=== PATIENT | female | born 1995 | race Caucasian/White ===

== ENCOUNTER 2019-08-20 14:23 | Emergency (ER) | payer SELFPAY ==
[2019-08-20] MEDS ORDERED: Metoclopramide HCl 10 MG/2 ML VIAL ONE (14:54)
[2019-08-20] MEDS ORDERED: Ketorolac Tromethamine 30 MG/ML VIAL ONE (14:54)
[2019-08-20] MEDS ORDERED: diphenhydrAMINE 50 MG/ML VIAL ONE (14:54)
[2019-08-20] MEDS ORDERED: Albuterol Sulfate 2.5 mg/3 ml Neb ONE ×2 (15:10→15:20)
[2019-08-20] MEDS ORDERED: Albuterol Sulfate 2.5 mg/0.5 ml Neb ONE ×2 (15:10→15:20)
--- NOTE | 2019-08-20 15:10 | RAD ---
XR Chest 1 View Portable History: Seizure Comparison: None. Findings: Lungs are clear. No pneumothorax or effusion. Cardiac silhouette and mediastinal contours a re within normal limits. No acute osseous or malalignment. Impression: No acute intrathoracic abnormality.
[2019-08-20 15:14] LABS: #Eosinphils 1.2 thou/uL (0.0-0.7); #Monocytes 0.4 thou/uL (0.11-0.59); #Neutrophils 5.1 thou/uL (1.40-6.50); %Basophils 0.3 % (0.0-1.0); %Lymphocytes 23.1 % (21.0-51.0); %Monocytes 4.5 % (0.0-10.0); %Neutrophils 58.1 % (42.0-75.0); Hemoglobin 13.1 g/dL (12.0-16.0); Mean Corpuscular HGB CONC 33.5 g/dL (32.0-36.0); Mean Corpuscular Hemoglobin 26.1 pg (27.0-31.0); Mean Platelet Volume 9.8 fL (7.4-10.4); Platelet Count 185 thou/uL (130-400); RBC Distribution Width 13.6 % (11.5-14.5); White Blood Cell (WBC) Count 8.8 thou/uL (4.8-10.8)
[2019-08-20 15:20] LABS: BHCG - Serum Negative (NEGATIVE); Pregs Control Background? CLEAR/WHITE (CLR/WHITE); Pregs Control Bar Appear? YES (CONTROL BAR)
--- NOTE | 2019-08-20 15:32 | CT ---
CT BRAIN NONCONTRAST: HISTORY: A 24-year-old female with seizure, headache, dizziness and dysarthria. 08/20/2019 FINDINGS: The ventricles are normal in size and configuration. There is no midline shift or any other mass eff ect. There is no evidence of acute intracranial hemorrhage, large cortical infarct, or extraaxial fl uid collection. The thomas matter /white matter differentiation is maintained. The calvarium is intac t. The tympanomastoid cavities, and the upper portions of the paranasal sinuses included in these im ages, are grossly clear. IMPRESSION: Normal. jn [] POS: TPC
[2019-08-20 15:35] LABS: ALT (SGPT) 11 U/L (8-55); AST (SGOT) 15 U/L (5-34); Albumin 4.7 g/dL (3.5-5.0); Alkaline Phosphatase 73 U/L (40-110); Anion Gap 12 mmol/L (10-20); BUN (Urea Nitrogen) 8 mg/dL (7.0-18.7); Bilirubin, Total 0.3 mg/dL (0.2-1.2); CK (CPK) 33 U/L (29-168); Calc. Creatinine Clearance 0 mL/min (70-130); Calcium 9.1 mg/dL (7.8-10.44); Carbon Dioxide 25 mmol/L (22-29); Chloride 104 mmol/L (98-107); Estimated GFR-MDRD Greater than 90; Globulin 2.7 g/dL (2.4-3.5); Glucose 103 mg/dL (70-105); Potassium 3.2 mmol/L (3.5-5.1); Protein, Total 7.4 g/dL (6.0-8.3); Sodium 138 mmol/L (136-145)
[2019-08-20 15:46] LABS: Thyroid Stimulating Hormone 1.2584 uIU/mL (0.35-4.94)
[2019-08-20] MEDS ORDERED: Potassium Chloride 20 MEQ TAB ONE (16:16)
== END 2019-08-20 16:37 | disposition home or self-care (01) ==
LOC: ERS 14:23
DX: F43.9 Reaction to severe stress, unspecified (principal); R53.83 Other fatigue; R51 Headache
CPT/HCPCS: 70450; 71045; 80053; 82550; 84146; 84443; 84703; 85025; 93005; 94640; 96365; 96375; J1200; J1885; J2765; J7611

== ENCOUNTER 2020-01-26 10:15 | Emergency (ER) | payer SELFPAY ==
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
[2020-01-26] MEDS ORDERED: Ondansetron ODT 4 MG TAB ONE (11:15)
[2020-01-26] MEDS ORDERED: Morphine 4 MG/ML VIAL ONE (11:15)
== END 2020-01-26 12:00 | disposition home or self-care (01) ==
LOC: ERS 10:15
DX: S83.91XA Sprain of unspecified site of right knee, initial encounter (principal); J45.909 Unspecified asthma, uncomplicated; F41.9 Anxiety disorder, unspecified; F17.220 Nicotine dependence, chewing tobacco, uncomplicated; V80.010A Animal-rider injured by fall from or being thrown from horse in noncollision accident, initial encounter
CPT/HCPCS: 96372; J2270; Q0162

== ENCOUNTER 2020-08-24 21:51 | Observation (INO) | payer SELFPAY ==
[2020-08-24] MEDS ORDERED: Aspirin Chewable 81 MG TAB ONE (22:20)
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
[2020-08-25] MEDS ORDERED: Albuterol Sulfate 2.5 mg/3 ml Neb EZPAP SCH (01:15)
[2020-08-25] MEDS ORDERED: Albuterol Sulfate 2.5 mg/3 ml Neb EZPAP PRN (01:33)
[2020-08-25] MEDS ORDERED: Aspirin Chewable 81 MG TAB ONE (07:54)
[2020-08-25] MEDS ORDERED: Acetaminophen 325 MG TAB ONE (07:54)
[2020-08-25] MEDS: Acetaminophen 325 MG TAB PO PRN ×2 (07:59→20:33)
[2020-08-25] MEDS: Aspirin 81 mg Enteric Coated Tablet PO SCH (07:59)
[2020-08-25 08:16] LABS: Cardiac Risk 3.1 (Less than 4.5)
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
[2020-08-25] MEDS ORDERED: Lorazepam 2 MG/ML VIAL SLOW IVP SCH (11:00)
[2020-08-25 11:03] LABS: SARS-CoV-2 MS2 Positive; SARS-CoV-2 N Gene Negative; SARS-CoV-2 S Gene Negative; SARS-CoV-2 by NAA Not Detected (NotDetected); SARS-CoV-2 orf1ab Negative
[2020-08-25] MEDS ORDERED: Prochlorperazine 10 MG/2 ML VIAL IVP SCH (11:15)
[2020-08-25] MEDS ORDERED: diphenhydrAMINE 50 MG/ML VIAL IVP SCH ×2 (11:15→21:30)
[2020-08-25] MEDS ORDERED: Ketorolac Tromethamine 30 MG/ML VIAL IVP SCH ×2 (11:15→21:30)
[2020-08-25] MEDS ORDERED: Ketorolac Tromethamine 30 MG/ML VIAL ONE (11:18)
[2020-08-25] MEDS ORDERED: Lorazepam 2 MG/ML VIAL ONE (11:18)
[2020-08-25] MEDS ORDERED: diphenhydrAMINE 50 MG/ML VIAL ONE (11:18)
--- NOTE | 2020-08-25 12:45 | MRI ---
MRI Brain WO Con: 08/25/2020 12:15 PM CLINICAL HISTORY: 25-year-old female with TIAs. TECHNIQUE: Multiplanar, multisequence images were obtained of the brain. COMPARISON: Prior CT the brain without contrast dated August 24, 2020 FINDINGS: Mild motion artifact limits exam particularly on the T1 sagittal images. Extra axial spaces: Normal in size and morphology for the patient's age. Hemorrhage: None. Ventricular system: Normal in size and morphology for the patient's age. Basal cisterns: Normal. Cerebral parenchyma: Normal. Midline shift: None. Cerebellum: Normal. Brainstem: Normal. OTHER: Calvarium: Normal. Vascular system: Normal. Visualized Paranasal sinuses: There is moderate mucosal thickening of the left maxillary sinus with m ild mucosal thickening ethmoid air cells and right frontal sinus.. Visualized Orbits: Normal. Visualized upper cervical spine: Normal. Sella and skull base: Normal. IMPRESSION: 1. No acute intracranial abnormality. 2. Mild paranasal sinus disease.
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
[2020-08-25 14:59] VITALS: BMI 26.4
[2020-08-25] MEDS ORDERED: Prochlorperazine Edisylate 10 MG in Sodium Chloride 0.9% 50 ML IVPB SCH (22:00)
[2020-08-26] MEDS: Acetaminophen 325 MG TAB PO PRN (08:32)
[2020-08-26] MEDS: Aspirin 81 mg Enteric Coated Tablet PO SCH (08:32)
[2020-08-26] MEDS ORDERED: methylPREDNISolone Sod Succ/PF 125 MG/2 ML VIAL IVP SCH (09:00)
[2020-08-26] MEDS ORDERED: Ketorolac Tromethamine 30 MG/ML VIAL IVP PRN (09:11)
[2020-08-26 11:47] VITALS: BP 117/75; TEMP 98.5
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
[2020-08-26] MEDS ORDERED: FLU VACC QS2020-21(6MOS UP)/PF 60 MCG/0.5 ML SYRINGE IM ONE (15:15)
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
== END 2020-08-26 13:24 | disposition home or self-care (01) ==
LOC: ERS 21:51 → ERHOLD 23:48 → 2SE 08-25 14:39
PROVIDERS: ADMIT Internal Medicine; ATTEND Internal Medicine
DX: S06.0X9A Concussion with loss of consciousness of unspecified duration, initial encounter (principal); R29.810 Facial weakness; G44.319 Acute post-traumatic headache, not intractable; J45.901 Unspecified asthma with (acute) exacerbation; G43.909 Migraine, unspecified, not intractable, without status migrainosus; F41.9 Anxiety disorder, unspecified; F32.9 Major depressive disorder, single episode, unspecified; F17.220 Nicotine dependence, chewing tobacco, uncomplicated; J32.9 Chronic sinusitis, unspecified; Z91.410 Personal history of adult physical and sexual abuse; Z79.899 Other long term (current) drug therapy; Z88.0 Allergy status to penicillin; Z88.4 Allergy status to anesthetic agent; Z88.6 Allergy status to analgesic agent; Z20.828 Contact with and (suspected) exposure to other viral communicable diseases; Y04.2XXA Assault by strike against or bumped into by another person, initial encounter
CPT/HCPCS: 36415; 70551; 80061; 83735; 87635; 93005; 96374; 96375; 96376; G0378; J0780; J1200; J1885; J2060; J2930; U0003